=== PATIENT | female | born 1990 | race Caucasian/White ===

== ENCOUNTER 2020-05-26 18:52 | Emergency (ER) | payer OTHER, SELFPAY ==
[2020-05-26 18:55] VITALS: BP 142/70; PULSE 99; RESP 16; TEMP 37.6; O2SAT 98; BMI 23.8
[2020-05-26 19:10] LABS: Glucose Urine UA NEG (NEG); Leukocyte Esterase Urine NEG (NEG); Nitrite Urine NEG (NEG); Specific Gravity - Urine 1.025 (1.005-1.025); Urine Blood 2+ (NEG); Urine Ketones NEG (NEG); Urine Protein NEG (NEG-TRACE)
[2020-05-26 19:14] LABS: Appearance Urine CLEAR; Color Urine YELLOW
[2020-05-26 19:15] LABS: UPreg QC Valid YES; Urine Pregnancy NEGATIVE (NEGATIVE)
[2020-05-26 19:24] LABS: WBC Urine 0-2 /HPF (0-4)
[2020-05-26 19:25] LABS: Bacteria Urine TRACE /LPF; Squamous Epithelial Cell Urine TRACE /LPF
--- NOTE | 2020-05-26 19:36 | ED_ITS ---
HPI - Abdominal Pain General Chief Complaint: Abdominal Pain Stated Complaint: ABD PAIN Time Seen by Provider: 05/26/20 19:36 Source: patient Mode of arrival: ambulatory Limitations: no limitations History of Present Illness MD elicited complaint: abdominal pain Onset (ago): day(s) (yesterday) Pain Consistency: constant Location: RLQ Severity: moderate Quality: cramping and aching Radiation: RLQ Migration to: no migration Exacerbating factors: movement Relieving factors: nothing Associated symptoms: nausea, vomiting and dysuria Treatments prior to arrival: other (tylenol) Related Data Previous Rx's Medication Instructions Recorded magnesium citrate 150 ml PO DAILY PRN #296 ml 05/26/20 nitrofurantoin monohyd/m-cryst 100 mg PO Q12H 5 Days #10 cap 05/26/20 [Macrobid] ondansetron 4 mg PO Q8H PRN #20 tab 05/26/20 Allergies Allergy/AdvReac Type Severity Reaction Status Date / Time prednisone [PREDNISONE] Allergy Intermediate HIVES Unverified 03/18/20 17:31 codeine [CODEINE] Allergy Unknown VOMITTING Unverified 03/18/20 17:31 Review of Systems Review of Systems Constitutional : No Weight loss, No Fever, No Chills ENT/Mouth : No sore throat, No Rhinorrhea Eyes: No Swelling, No Redness Cardiovascular : No Chest Pain, No SOB, NoEdema Respiratory : No Cough, No Sputum, No Wheezing Gastrointestinal : Positive Nausea, Positive Vomiting, positive Diarrhea, positive abdominal Pain, No Hematochezia, No Melena Genitourinary : No Dysuria, No Urinary Frequency, No Hematuria, No Urgency Musculoskeletal : No joint pain, No Myalgias, No Joint Swelling Skin : No Skin Lesions, No rash Neuro : No Weakness, No Numbness, No Dizziness, No Headache Psych : No Anxiety/Panic, No Depression Heme/Lymph: No Bruising, No Lymphadenopathy Endocrine : No Polyuria, No Polydipsia All other systems reviewed and are negative. Physical Exam Vital Signs: Vital Signs: Last Vital Signs Temp 100.1 F 05/26/20 20:43 Pulse 88 05/26/20 20:43 Resp 17 05/26/20 20:43 BP 109/59 L 05/26/20 20:43 Pulse Ox 97 05/26/20 20:43 Body Mass Index 23.8 Appearance: Alert. Oriented X3. No acute distress. Eyes: Pupils equal, round and reactive to light. ENT: Pharynx normal. Neck: Normal inspection. Neck supple. CVS: Normal heart rate and rhythm. Pulses normal. Respiratory: No respiratory distress. Breath sounds normal. Abdomen: Soft and moderate RLQ tenderness, no rebound or guarding. Skin: Skin warm and dry. Normal skin color. Normal skin turgor. Extremities: No lower extremity edema. No calf ttp Neuro: Oriented X 3. No motor deficit. No sensory deficit. Course Course Course Narrative: no acute findings will treat as cystitis and constipation MDM - Abdominal Pain MDM Narrative Medical decision making narrative: 29 yo female healthy here with n/v and RLQ pain will obtain labs, given IVF and toradol for pain, CT scan for appendicitis Lab Data Result diagrams: 05/26/20 20:09 05/26/20 20:09 Labs: Lab Results 05/26/20 05/26/20 05/26/20 Range/Units 19:02 20:09 20:09 WBC 5.6 (4.8-10.8) X10*3/uL RBC 4.77 (4.20-5.50) X10*6/uL Hgb 14.2 (12.0-16.0) g/dl Hct 42.5 (37-47) % MCV 89.1 (80-98) fL MCH 29.8 (27.0-33.0) pg MCHC 33.4 (31.0-35.0) g/dl RDW 12.2 (11.0-16.0) % Plt Count 224 (160-400) X10*3/uL MPV 9.3 L (9.4-12.3) fL Immature Gran % (Auto) 0.4 (0.0-0.4) % Neut % (Auto) 84.8 H (45-73) % Lymph % (Auto) 5.7 L (20-40) % [place] % (Auto) 7.9 (2-11) % Eos % (Auto) 0.5 (0-4) % Baso % (Auto) 0.7 (0-2) % Lymph # (Auto) 0.3 L (1.2-4.9) X10*3/uL [place] # (Auto) 0.4 (0.1-1.2) X10*3/uL Eos # (Auto) 0.0 (0.0-0.4) X10*3/uL Baso # (Auto) 0.0 (0.0-0.2) X10*3/uL Abs Immat Gran (auto) 0.02 (0.00-0.03) X10*3/uL Absolute Neuts (auto) 4.7 (2.0-8.3) X10*3/uL Absolute Nucleated RBC 0.000 (0.0-0.012) X10*3/uL Nucleated RBC % (auto) 0.0 (0.0-0.2) /100WBC Smear Tech's Comments VERIFIED Hold Blue Top SEE NOTE Sodium Potassium Chloride Carbon Dioxide Anion Gap BUN Creatinine Estim Creat Clear Calc Estimated GFR Random Glucose Lactic Acid (0.5-2.0) mmol/L Calcium Magnesium (1.6-2.6) mg/dL Total Bilirubin (0.0-1.0) mg/dL Direct Bilirubin (0.0-0.5) mg/dL AST (5-31) U/L ALT (0-31) U/L Alkaline Phosphatase (39-117) U/L Total Protein (6.5-8.0) g/dL Albumin (3.5-5.0) g/dL Lipase (8-78) U/L Urine Color YELLOW Urine Appearance CLEAR Urine pH 6.0 (5.0-8.0) Ur Specific [place] 1.025 (1.005-1.025) Urine Protein NEG (NEG-TRACE) MG/DL Urine Glucose (UA) NEG (NEG) MG/DL Urine Ketones NEG (NEG) MG/DL Urine Blood 2+ H (NEG) Urine Nitrite NEG (NEG) Ur Leukocyte Esterase NEG (NEG) Urine RBC 1-4 (0) /HPF Urine WBC 0-2 (0-4) /HPF Ur Squamous Epith Cells TRACE /LPF Urine Bacteria TRACE /LPF Urine Test NEGATIVE (NEGATIVE) 05/26/20 05/26/20 05/26/20 Range/Units 20:09 20:09 20:09 WBC (4.8-10.8) X10*3/uL RBC (4.20-5.50) X10*6/uL Hgb (12.0-16.0) g/dl Hct (37-47) % MCV (80-98) fL MCH (27.0-33.0) pg MCHC (31.0-35.0) g/dl RDW (11.0-16.0) % Plt Count (160-400) X10*3/uL MPV (9.4-12.3) fL Immature Gran % (Auto) (0.0-0.4) % Neut % (Auto) (45-73) % Lymph % (Auto) (20-40) % [place] % (Auto) (2-11) % Eos % (Auto) (0-4) % Baso % (Auto) (0-2) % Lymph # (Auto) (1.2-4.9) X10*3/uL [place] # (Auto) (0.1-1.2) X10*3/uL Eos # (Auto) (0.0-0.4) X10*3/uL Baso # (Auto) (0.0-0.2) X10*3/uL Abs Immat Gran (auto) (0.00-0.03) X10*3/uL Absolute Neuts (auto) (2.0-8.3) X10*3/uL Absolute Nucleated RBC (0.0-0.012) X10*3/uL Nucleated RBC % (auto) (0.0-0.2) /100WBC Smear Tech's Comments Hold Blue Top Sodium Cancelled 137 Potassium Cancelled 3.8 Chloride Cancelled 102 Carbon Dioxide Cancelled 25 Anion Gap Cancelled 14 BUN Cancelled 10 Creatinine Cancelled 0.68 Estim Creat Clear Calc Cancelled 110.8 Estimated GFR Cancelled > 60 Random Glucose Cancelled 82 Lactic Acid 1.0 (0.5-2.0) mmol/L Calcium Cancelled 8.7 Magnesium 1.8 (1.6-2.6) mg/dL Total Bilirubin 0.6 (0.0-1.0) mg/dL Direct Bilirubin 0.2 (0.0-0.5) mg/dL AST 17 (5-31) U/L ALT 12 (0-31) U/L Alkaline Phosphatase 59 (39-117) U/L Total Protein 7.9 (6.5-8.0) g/dL Albumin 4.5 (3.5-5.0) g/dL Lipase 13 (8-78) U/L Urine Color Urine Appearance Urine pH (5.0-8.0) Ur Specific [place] (1.005-1.025) Urine Protein (NEG-TRACE) MG/DL Urine Glucose (UA) (NEG) MG/DL Urine Ketones (NEG) MG/DL Urine Blood (NEG) Urine Nitrite (NEG) Ur Leukocyte Esterase (NEG) Urine RBC (0) /HPF Urine WBC (0-4) /HPF Ur Squamous Epith Cells /LPF Urine Bacteria /LPF Urine Test (NEGATIVE) Discharge Plan Discharge Clinical Impression: Cystitis Constipation Qualifiers: Constipation type: unspecified constipation type Qualified Code(s): K59.00 - Constipation, unspecified Patient Disposition: Home, Self-Care Instructions: Constipation (ED), Urinary Tract Infection in Women (ED) Additional Instructions: return to ED for any worsening symptoms or concerns Prescriptions: New ondansetron 4 mg tablet,disintegrating 4 mg PO Q8H PRN (Reason: nausea and vomiting) Qty: 20 RF: 0 nitrofurantoin monohyd/m-cryst [Macrobid] 100 mg capsule 100 mg PO Q12H 5 Days Qty: 10 RF: 0 magnesium citrate Solution 150 ml PO DAILY PRN (Reason: constipation) Qty: 296 RF: 0 Referrals: Wesly Melendez MD [Primary Care Provider] - 5 days (if not better) [facility] Past Medical History Attestation statement: The following information was validated with the patient. Medical History No known health problems Social History Social History (Updated 05/26/20 @ 19:50 by Pat Velarde DO) Smoking Status: Never smoker Use of substances other than those prescribed or required for medical reasons: Yes Substance Use Type: Marijuana Advance Directives: No Advance Directives Information Provided: No
--- NOTE | 2020-05-26 19:40 | CT_ITS ---
EXAMINATION: CT ABDOMEN AND PELVIS WITH CONTRAST CLINICAL INFORMATION: 21-year-old female with right lower quadrant pain. COMPARISON: None TECHNIQUE: Multidetector volumetric images were obtained from the superior aspect of the liver through the pubic symphysis following administration 85 mL of Omnipaque 350 intravenous contrast. Sagittal and coronal reformatted images were obtained on the technologist's workstation. Oral contrast: No This CT examination was performed using dose optimization techniques as appropriate, variously including the following: *Automated exposure control *Adjustment of mA and/or kV according to patient size (this includes techniques or standardized protocols for targeted exams where dose is matched to indication/reason for exam; i.e. extremities or head) *Use of iterative reconstruction technique DLP: 456 mGy-cm FINDINGS: Visualized lung bases are well aerated. The liver demonstrates normal size, contour and attenuation. A few punctate calcifications are noted within the liver. The gallbladder is normal in appearance. The pancreas, spleen and adrenal glands are unremarkable. A few punctate calcifications are noted within the spleen. Symmetrically enhancing kidneys. No hydronephrosis bilaterally. Normal caliber loops of small and large bowel. Normal appendix. No gross mesenteric or retroperitoneal lymphadenopathy. The bladder is well-distended and normal in appearance. IUD appears appropriately positioned within the uterus. 1.4 cm left adnexal cyst. No gross free pelvic fluid. No inguinal lymphadenopathy. No acute osseous abnormality. CT/CT abdomen pelvis w con IMPRESSION: -No CT evidence for acute abnormality within the abdomen or pelvis. -Evidence of prior granulomatous disease.
[2020-05-26] MEDS: 0.9 % Sodium Chloride 1,000 ML 999 ML IVCONT (20:13)
[2020-05-26] MEDS: Ketorolac Tromethamine 30 MG/ML VIAL IVPUSH (20:17)
[2020-05-26] MEDS: ondansetron HCL 4 MG/2 ML VIAL IVPUSH (20:17)
[2020-05-26 20:22] LABS: Basophils Percent Auto 0.7 % (0-2); Eosinophils Percent Auto 0.5 % (0-4); Hematocrit 42.5 % (37-47); Hemoglobin 14.2 g/dl (12.0-16.0); Imm Gran Abs Auto 0.02 X10*3/uL (0.00-0.03); Imm Gran Pct Auto 0.4 % (0.0-0.4); Lymphocytes Absolute Auto 0.3 X10*3/uL (1.2-4.9); Lymphocytes Percent Auto 5.7 % (20-40); MANUAL DIFF FLAG SCAN; Mean Corpuscular HGB Conc 33.4 g/dl (31.0-35.0); Mean Corpuscular Hemoglobin 29.8 pg (27.0-33.0); Mean Corpuscular Volume 89.1 fL (80-98); Mean Platelet Volume 9.3 fL (9.4-12.3); Monocytes Absolute Auto 0.4 X10*3/uL (0.1-1.2); Monocytes Percent Auto 7.9 % (2-11); Neutrophils Absolute Auto 4.7 X10*3/uL (2.0-8.3); Neutrophils Percent Auto 84.8 % (45-73); Platelet Count 224 X10*3/uL (160-400); Red Blood Count 4.77 X10*6/uL (4.20-5.50); Red Cell Distribution Width 12.2 % (11.0-16.0); SCAN SMEAR FLAG 1; White Blood Count 5.6 X10*3/uL (4.8-10.8)
[2020-05-26 20:41] LABS: SLIDE REVIEW VERIFIED
[2020-05-26 20:43] VITALS: BP 109/59; PULSE 88; RESP 17; TEMP 37.8; O2SAT 97
[2020-05-26 20:52] LABS: Alanine Aminotransferase 12 U/L (0-31); Albumin Level 4.5 g/dL (3.5-5.0); Alkaline Phosphatase 59 U/L (39-117); Anion Gap 14 (12-20); Aspartate Amino Transferase 17 U/L (5-31); Bilirubin Direct 0.2 mg/dL (0.0-0.5); Bilirubin Total 0.6 mg/dL (0.0-1.0); Blood Urea Nitrogen 10 mg/dL (9-16); Calcium 8.7 mg/dL (8.4-10.2); Carbon Dioxide 25 mmol/L (22-29); Chloride 102 mmol/L (96-108); Creatinine Clr Calc Pharmacy 110.8; Estimated Glomerular Filt Rate > 60; Glucose Random 82 mg/dL (60-115); Lipase 13 U/L (8-78); Magnesium 1.8 mg/dL (1.6-2.6); Potassium 3.8 mmol/l (3.3-5.1); Sodium 137 mmol/L (135-145); Total Protein 7.9 g/dL (6.5-8.0)
[2020-05-26] MEDS: iohexoL 350 MG/ML 100 ML INFUS..BTL IV (21:09)
[2020-05-26] MEDS: Nitrofurantoin Monohyd/M-Cryst 100 MG CAPSULE PO (22:39)
== END 2020-05-26 23:00 | disposition home or self-care (01) ==
PROVIDERS: Emergency Provider Emergency Medicine; PCP Internal Medicine
DX: N30.90 Cystitis, unspecified without hematuria (principal); K59.00 Constipation, unspecified; R10.31 Right lower quadrant pain; F12.90 Cannabis use, unspecified, uncomplicated; Z79.899 Other long term (current) drug therapy
CPT/HCPCS: 36415; 74177; 80048; 80076; 81001; 81025; 83605; 83690; 83735; 85025; 87040; 96365; 96374; 96375; 99284; J1885; J2405; Q9967

== ENCOUNTER 2021-09-28 11:15 | Outpatient (REF) | payer OTHER, SELFPAY ==
[2021-09-28 12:11] LABS: Hematocrit 39.9 % (37.0-47.0); Hemoglobin 13.2 g/dl (12.0-16.0); Mean Corpuscular HGB Conc 33.1 g/dl (31.0-35.0); Mean Corpuscular Hemoglobin 30.4 pg (27.0-33.0); Mean Corpuscular Volume 91.9 fL (80.0-98.0); Mean Platelet Volume 9.6 fL (9.4-12.3); Platelet Count 275 X10*3/uL (160-400); Red Blood Count 4.34 X10*6/uL (4.20-5.50); Red Cell Distribution Width 12.3 % (11.0-16.0); White Blood Count 7.4 X10*3/uL (4.8-10.8)
[2021-09-28 13:06] LABS: Alanine Aminotransferase 14 U/L (0-31); Albumin Level 4.3 g/dL (3.5-5.0); Alkaline Phosphatase 50 U/L (39-117); Anion Gap 10 (12-20); Aspartate Amino Transferase 15 U/L (5-31); Bilirubin Total 0.7 mg/dL (0.0-1.0); Blood Urea Nitrogen 15 mg/dL (9-16); Calcium 9.1 mg/dL (8.4-10.2); Carbon Dioxide 26 mmol/L (22-29); Chloride 103 mmol/L (96-108); Estimated Glomerular Filt Rate > 60; Glucose Fasting 85 mg/dL (60-99); Potassium 4.2 mmol/L (3.3-5.1); Sodium 135 mmol/L (135-145); Total Protein 7.7 g/dL (6.5-8.0)
[2021-09-28 13:13] LABS: Free T4 (Free Thyroxine) 1.01 ng/dL (0.71-1.85); Thyroid Stimulating Hormone 0.97 uIU/mL (0.32-4.0)
[2021-09-28 13:21] LABS: Folate 14.7 ng/mL (> or = 4.0); Vitamin B12 346 pg/mL (200-900)
== END 2021-09-28 11:16 | disposition home or self-care (01) ==
LOC: HO.LAB 11:15
PROVIDERS: Nurse Practitioner Family; PCP Internal Medicine; Visit Provider Internal Medicine
DX: R51.9 Headache, unspecified (principal); F41.9 Anxiety disorder, unspecified; R53.83 Other fatigue
CPT/HCPCS: 36415; 80053; 82306; 82607; 82746; 84439; 84443; 85027

== ENCOUNTER 2021-10-10 07:34 | Outpatient (REF) | payer OTHER, SELFPAY ==
--- NOTE | ~2021-10-10 | CT_ITS ---
CT HEAD WITHOUT CONTRAST CLINICAL INFORMATION: Amnesia and headaches. COMPARISON: Head CT September 11, 2010. TECHNIQUE: Contiguous axial imaging was performed from the skull base to vertex without intravenous administration of contrast. This CT examination was performed using dose optimization techniques as appropriate, variously including the following: *Automated exposure control *Adjustment of mA and/or kV according to patient size (this includes techniques or standardized protocols for targeted exams where dose is matched to indication/reason for exam; i.e. extremities or head) *Use of iterative reconstruction technique FINDINGS: There is no intracranial hemorrhage, hydrocephalus, extra-axial surface collection, midline shift, or other herniation pattern. Abad to white matter differentiation is diffusely maintained without evidence of an evolved acute territorial infarct. The basilar cisterns are preserved. No significant soft tissue abnormality. No acute osseous abnormality. The paranasal sinuses and the mastoid air cells are well aerated. CT/CT head/brain wo con IMPRESSION: No acute intracranial abnormality.
== END 2021-10-10 07:35 | disposition home or self-care (01) ==
LOC: HO.CT 07:34
PROVIDERS: PCP Internal Medicine; Visit Provider Nurse Practitioner Family
DX: R51.9 Headache, unspecified (principal); R41.3 Other amnesia
CPT/HCPCS: 70450

== ENCOUNTER 2022-10-31 17:29 | Emergency (ER) | payer OTHER, SELFPAY ==
--- NOTE | ~2022-10-31 | US_ITS ---
EXAMINATION: US OBSTETRICAL ULTRASOUND CLINICAL INFORMATION: Evaluation of ectopic , per history patient was given methotrexate yesterday. COMPARISON: CT abdomen/pelvis 05/26/2020. LMP: 09/12/2022. Gestational age by maternal dates is 7 weeks and 0 days. Estimated date of delivery by maternal dates is 06/19/2023. TECHNIQUE: Transabdominal and transvaginal images obtained with the patient's consent. FINDINGS: The uterus is anteverted and measures 7.2 x 3 x 3.6 cm. No intrauterine gestational sac is noted. The endometrium measures 0.4 cm in thickness. No discrete focal endometrial abnormality. Normal morphology of the both ovaries. The right ovary measures 2 x 0.9 x 0.9 cm and the left ovary measures 2.5 x 1.9 x 1.6 cm. There is a 1 x 0.7 x 0.8 cm peripherally hyperemic cyst in the left ovary, favored to represent a corpus luteal cyst. Separate from the left ovary in the left adnexa, there is a 2.4 x 1.3 x 1.6 cm mass with a rim of peripheral hyperemia. Small amount of free fluid. US/US OB pelvic and transvaginal IMPRESSION: No evidence of intrauterine gestation. There is a 2.4 cm left adnexal mass, adjacent but separate from the left ovary, with a peripheral hypervascular rim, suspicious for an ectopic in the appropriate clinical context. Correlation with quantitative hCG and OB consultation is recommended.
[2022-10-31 18:33] VITALS: BP 131/72; PULSE 76; RESP 18; TEMP 36.2; O2SAT 100; BMI 27.0
--- NOTE | 2022-10-31 18:33 | ED.FEMALEGU ---
HPI - Female Genitourinary General Chief complaint: Urogenital-Female <ALIX Moreno - Last Filed: 10/31/22 18:39> Stated complaint: Abnormal labs/?Ectopic preg <ALIX Moreno - Last Filed: 10/31/22 18:39> Time Seen by Provider: 10/31/22 19:42 <ALIX Moreno - Last Filed: 10/31/22 18:39> Source: patient <Thu Whitley MD - Last Filed: 10/31/22 22:38> Mode of arrival: ambulatory <Thu Whitley MD - Last Filed: 10/31/22 22:38> Limitations: no limitations <Thu Whitley MD - Last Filed: 10/31/22 22:38> History of Present Illness HPI Narrative: Patient comes to the emergency room after [facility]. [facility], [facility] tablet by mouth and for several call tablets at 18:50. Patient states that around 4 in the morning today she started having mild vaginal bleeding and cramping. Patient states that yesterday they did an ultrasound and intrauterine and was not visualized. Today, she got a phone call because her hCG is 4800 there was a concern for an ectopic . Patient was advised to come to emergency room. Patient states that this time she has no significant pain, only occasional cramping and mild vaginal bleeding. This is her 1st <Thu Whitley MD - Last Filed: 10/31/22 22:38> Related Data Home medications: Home Medications Medication Instructions Recorded Confirmed norethindrone (contraceptive) 0.35 0.35 mg PO DAILY 05/03/21 05/03/21 mg tablet Previous Rx's Medication Instructions Recorded meclizine 25 mg tablet 25 mg PO DAILY PRN motion sickness 05/03/21 #10 tabs escitalopram oxalate 10 mg tablet 10 mg PO DAILY #30 tabs 06/06/21 (Lexapro) cholecalciferol (vitamin D3) 25 25 mcg PO DAILY #90 tabs 09/28/21 mcg (1,000 unit) tablet azithromycin 250 mg tablet See Rx Instructions PO .COMPLEX #6 03/15/22 (Zithromax) tabs trazodone 50 mg tablet 50 mg PO BEDTIME PRN sleep #30 tabs 07/05/22 <ALIX Moreno - Last Filed: 10/31/22 18:39> Allergies/Adverse reactions: Allergies Allergy/AdvReac Type Severity Reaction Status Date / Time prednisone [PREDNISONE] Allergy Intermediate HIVES Verified 10/31/22 18:33 codeine [CODEINE] Allergy Unknown VOMITTING Verified 10/31/22 18:33 <ALIX Moreno - Last Filed: 10/31/22 18:39> Review of Systems Review of Systems: Constitutional : No Weight loss, No Fever, No Chills, No Night Sweats, No Fatigue, No Malaise ENT/Mouth : No Hearing loss, No Ear Pain, No Nasal Congestion, No Sinus Pain, No Hoarseness, No sore throat, No Rhinorrhea, No Swallowing Difficulty Eyes: No Eye Pain, No Swelling, No Redness, No Foreign Body, No Discharge, No Vision Changes Cardiovascular : No Chest Pain, No SOB, No Dyspnea on Exertion, No Orthopnea, No Edema, No Palpitations Respiratory : No Cough, No Sputum, No Wheezing, No Smoke Exposure, No Dyspnea Gastrointestinal : No Nausea, No Vomiting, No Diarrhea, No Constipation, No abdominal Pain, No Hematochezia, No Melena Genitourinary : Complaining of mild cramping and mild vaginal bleeding, No Dysuria, No Urinary Frequency, No Hematuria, No Urinary Incontinence, No Urgency, No Flank Pain, No Urinary Flow Changes, No Hesitancy Musculoskeletal : No joint pain, No Myalgias, No Joint Swelling Skin : No Skin Lesions, No rash Neuro : No Weakness, No Numbness, No Paresthesias, No Loss of Consciousness, No Dizziness, No Headache Psych : No Anxiety/Panic, No Depression, No SI/HI/AH/VH, No Social Issues, Heme/Lymph: No Bruising, No Bleeding,No Lymphadenopathy Endocrine : No Polyuria, No Polydipsia, No Temperature Intolerance <Thu Whitley MD - Last Filed: 10/31/22 22:38> [facility] Past Medical History Medical History: Medical History Generalized anxiety disorder No known health problems <ALIX Moreno - Last Filed: 10/31/22 18:39> Surgical History: Surgical History No pertinent past surgical history <ALIX Moreno - Last Filed: 10/31/22 18:39> Family History Family History: Family History Mother Arthritis Father No problems noted. 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 Cognitive needs: No Hearing needs: No Vision needs: No <ALIX Moreno - Last Filed: 10/31/22 18:39> Physical Exam Vital Signs: Vital Signs: Last Vital Signs Temp 98.3 F 10/31/22 22:19 Pulse 80 10/31/22 22:19 Resp 16 10/31/22 22:19 BP 122/64 10/31/22 22:19 Pulse Ox 97 10/31/22 22:19 O2 Del Method Room Air 10/31/22 22:19 BMI result Body Mass Index 27.7 <ALIX Moreno - Last Filed: 10/31/22 18:39> Vital Signs: Last Vital Signs Temp 98.3 F 10/31/22 22:19 Pulse 80 10/31/22 22:19 Resp 16 10/31/22 22:19 BP 122/64 10/31/22 22:19 Pulse Ox 97 10/31/22 22:19 O2 Del Method Room Air 10/31/22 22:19 BMI result Body Mass Index 27.7 <Thu Whitley MD - Last Filed: 10/31/22 22:38> Const: Other: Appearance: Alert. Oriented X3. No acute distress. Eyes: Pupils equal, round and reactive to light. ENT: Pharynx normal. Neck: Normal inspection. Neck supple. No lymph nodes noted. No crepitus CVS: Normal heart rate and rhythm. Pulses normal. Normal S1 and S2 Respiratory: No respiratory distress. Breath sounds normal. No Wheezing. No rales Abdomen: Soft and nontender. No rigidity. No distention. Skin: Skin warm and dry. Normal skin color. Normal skin turgor. Extremities: No lower extremity edema. No Lacerations. No Rash Neuro: Oriented X 3. No motor deficit. No sensory deficit. Moving all extremities. No slurred speech. CN 2 through 12 grossly intact Psych: calm, cooperative, normal affect <Thu Whitley MD - Last Filed: 10/31/22 22:38> Course Course Course Narrative: RME - 32 y/o female presents to the ER for evaluation of a treated medical yesterday at [facility] with concern for elevated HCG of 4800 that resulted today after a pelvic U/S yesterday showing no IUP. She was treated with PO and vaginal pills last night by [facility], labs that were done yesterday resulted today. She has been vaginally bleeding all day but no significant pain, mild cramping. Plan: repeat labs and U/S to assess for possible ectopic , will need to d/w Dr. Sams <ALIX Moreno - Last Filed: 10/31/22 18:39> Medical Decision Making Medical Decision Making [facility] Narrative: -I discussed the ultrasound and the labs with Dr. Sams, patient is a candidate for methotrexate. -Dr. Sams evaluated the patient at bedside. Methotrexate has been ordered. -patient instructed that she needs lab work/hCG on November 03 and November 06. Patient will be seen on Dr. Sams's office on the 8th floor she gets her lab work done -patient's blood type O positive, RhoGAM not indicated <Thu Whitley MD - Last Filed: 10/31/22 22:38> Consult Healthcare Provider Management of the patient was discussed with: Biophysics Teacher <Thu Whitley MD - Last Filed: 10/31/22 22:38> Lab Data [facility] Lab Attestation statement: I reviewed the patient's lab results. <Thu Whitley MD - Last Filed: 10/31/22 22:38> Result Diagrams: 10/31/22 18:35 10/31/22 18:35 <ALIX Moreno - Last Filed: 10/31/22 18:39> Labs: Lab Results 10/31/22 10/31/22 10/31/22 Range/Units 18:35 18:35 18:35 WBC 9.8 (4.8-10.8) X10*3/uL RBC 4.57 (4.20-5.50) X10*6/uL Hgb 14.1 (12.0-16.0) g/dl Hct 43.2 (37.0-47.0) % MCV 94.5 (80.0-98.0) fL MCH 30.9 (27.0-33.0) pg MCHC 32.6 (31.0-35.0) g/dl RDW 12.2 (11.0-16.0) % Plt Count 298 (160-400) X10*3/uL MPV 9.5 (9.4-12.3) fL Immature Gran % (Auto) 0.3 (0.0-0.4) % Neut % (Auto) 63.9 (45-73) % Lymph % (Auto) 25.5 (20-40) % [place] % (Auto) 8.3 (2-11) % Eos % (Auto) 1.1 (0-4) % Baso % (Auto) 0.9 (0-2) % Lymph # (Auto) 2.5 (1.2-4.9) X10*3/uL [place] # (Auto) 0.8 (0.1-1.2) X10*3/uL Eos # (Auto) 0.1 (0.0-0.4) X10*3/uL Baso # (Auto) 0.1 (0.0-0.2) X10*3/uL Abs Immat Gran (auto) 0.03 (0.00-0.03) X10*3/uL Absolute Neuts (auto) 6.3 (2.0-8.3) x10*3/uL Absolute Nucleated RBC 0.000 (0.0-0.012) X10*3/uL Nucleated RBC % (auto) 0.0 (0.0-0.2) /100WBC Sodium 138 (135-145) mmol/L Potassium 3.6 (3.3-5.1) mmol/L Chloride 106 (96-108) mmol/L Carbon Dioxide 23 (22-29) mmol/L Anion Gap 13 (12-20) BUN 9 (9-16) mg/dL Creatinine 0.74 (0.5-1.4) mg/dL Estim Creat Clear Calc 110.5 Estimated GFR > 60 Random Glucose 87 (60-115) mg/dL Calcium 9.1 (8.4-10.2) mg/dL Magnesium 1.8 (1.6-2.6) mg/dL Total Bilirubin 0.6 (0.0-1.0) mg/dL Direct Bilirubin 0.2 (0.0-0.5) mg/dL AST 15 (5-31) U/L ALT 11 (0-31) U/L Alkaline Phosphatase 51 (39-117) U/L Total Protein 7.8 (6.5-8.0) g/dL Albumin 4.4 (3.5-5.0) g/dL Beta HCG, Quant 4817 mIU/mL Urine Color Urine Appearance Urine pH (5.0-9.0) Ur Specific [place] (1.005-1.025) Urine Protein (Neg-Trace) mg/dL Urine Glucose (UA) (Negative) mg/dL Urine Ketones (Negative) mg/dL Urine Blood (Negative) Urine Nitrite (Negative) Ur Leukocyte Esterase (Negative) Urine RBC (0-2) /HPF Urine WBC (0-5) /HPF Ur Squamous Epith Cells (0-2) /HPF Urine Bacteria (None Seen) Hyaline Casts (0-2) /LPF Blood Type O Positive 10/31/22 Range/Units 18:35 WBC (4.8-10.8) X10*3/uL RBC (4.20-5.50) X10*6/uL Hgb (12.0-16.0) g/dl Hct (37.0-47.0) % MCV (80.0-98.0) fL MCH (27.0-33.0) pg MCHC (31.0-35.0) g/dl RDW (11.0-16.0) % Plt Count (160-400) X10*3/uL MPV (9.4-12.3) fL Immature Gran % (Auto) (0.0-0.4) % Neut % (Auto) (45-73) % Lymph % (Auto) (20-40) % [place] % (Auto) (2-11) % Eos % (Auto) (0-4) % Baso % (Auto) (0-2) % Lymph # (Auto) (1.2-4.9) X10*3/uL [place] # (Auto) (0.1-1.2) X10*3/uL Eos # (Auto) (0.0-0.4) X10*3/uL Baso # (Auto) (0.0-0.2) X10*3/uL Abs Immat Gran (auto) (0.00-0.03) X10*3/uL Absolute Neuts (auto) (2.0-8.3) x10*3/uL Absolute Nucleated RBC (0.0-0.012) X10*3/uL Nucleated RBC % (auto) (0.0-0.2) /100WBC Sodium (135-145) mmol/L Potassium (3.3-5.1) mmol/L Chloride (96-108) mmol/L Carbon Dioxide (22-29) mmol/L Anion Gap (12-20) BUN (9-16) mg/dL Creatinine (0.5-1.4) mg/dL Estim Creat Clear Calc Estimated GFR Random Glucose (60-115) mg/dL Calcium (8.4-10.2) mg/dL Magnesium (1.6-2.6) mg/dL Total Bilirubin (0.0-1.0) mg/dL Direct Bilirubin (0.0-0.5) mg/dL AST (5-31) U/L ALT (0-31) U/L Alkaline Phosphatase (39-117) U/L Total Protein (6.5-8.0) g/dL Albumin (3.5-5.0) g/dL Beta HCG, Quant mIU/mL Urine Color Yellow Urine Appearance Clear Urine pH 6.0 (5.0-9.0) Ur Specific [place] 1.010 (1.005-1.025) Urine Protein Trace (Neg-Trace) mg/dL Urine Glucose (UA) Negative (Negative) mg/dL Urine Ketones 15 (Negative) mg/dL Urine Blood Large (3+) H (Negative) Urine Nitrite Negative (Negative) Ur Leukocyte Esterase Small (1+) H (Negative) Urine RBC >20 H (0-2) /HPF Urine WBC 11-20 H (0-5) /HPF Ur Squamous Epith Cells 3-5 (0-2) /HPF Urine Bacteria None Seen (None Seen) Hyaline Casts 0-2 (0-2) /LPF Blood Type <ALIX Moreno - Last Filed: 10/31/22 18:39> Lab Results 10/31/22 10/31/22 10/31/22 Range/Units 18:35 18:35 18:35 WBC 9.8 (4.8-10.8) X10*3/uL RBC 4.57 (4.20-5.50) X10*6/uL Hgb 14.1 (12.0-16.0) g/dl Hct 43.2 (37.0-47.0) % MCV 94.5 (80.0-98.0) fL MCH 30.9 (27.0-33.0) pg MCHC 32.6 (31.0-35.0) g/dl RDW 12.2 (11.0-16.0) % Plt Count 298 (160-400) X10*3/uL MPV 9.5 (9.4-12.3) fL Immature Gran % (Auto) 0.3 (0.0-0.4) % Neut % (Auto) 63.9 (45-73) % Lymph % (Auto) 25.5 (20-40) % [place] % (Auto) 8.3 (2-11) % Eos % (Auto) 1.1 (0-4) % Baso % (Auto) 0.9 (0-2) % Lymph # (Auto) 2.5 (1.2-4.9) X10*3/uL [place] # (Auto) 0.8 (0.1-1.2) X10*3/uL Eos # (Auto) 0.1 (0.0-0.4) X10*3/uL Baso # (Auto) 0.1 (0.0-0.2) X10*3/uL Abs Immat Gran (auto) 0.03 (0.00-0.03) X10*3/uL Absolute Neuts (auto) 6.3 (2.0-8.3) x10*3/uL Absolute Nucleated RBC 0.000 (0.0-0.012) X10*3/uL Nucleated RBC % (auto) 0.0 (0.0-0.2) /100WBC Sodium 138 (135-145) mmol/L Potassium 3.6 (3.3-5.1) mmol/L Chloride 106 (96-108) mmol/L Carbon Dioxide 23 (22-29) mmol/L Anion Gap 13 (12-20) BUN 9 (9-16) mg/dL Creatinine 0.74 (0.5-1.4) mg/dL Estim Creat Clear Calc 110.5 Estimated GFR > 60 Random Glucose 87 (60-115) mg/dL Calcium 9.1 (8.4-10.2) mg/dL Magnesium 1.8 (1.6-2.6) mg/dL Total Bilirubin 0.6 (0.0-1.0) mg/dL Direct Bilirubin 0.2 (0.0-0.5) mg/dL AST 15 (5-31) U/L ALT 11 (0-31) U/L Alkaline Phosphatase 51 (39-117) U/L Total Protein 7.8 (6.5-8.0) g/dL Albumin 4.4 (3.5-5.0) g/dL Beta HCG, Quant 4817 mIU/mL Urine Color Urine Appearance Urine pH (5.0-9.0) Ur Specific [place] (1.005-1.025) Urine Protein (Neg-Trace) mg/dL Urine Glucose (UA) (Negative) mg/dL Urine Ketones (Negative) mg/dL Urine Blood (Negative) Urine Nitrite (Negative) Ur Leukocyte Esterase (Negative) Urine RBC (0-2) /HPF Urine WBC (0-5) /HPF Ur Squamous Epith Cells (0-2) /HPF Urine Bacteria (None Seen) Hyaline Casts (0-2) /LPF Blood Type O Positive 10/31/22 Range/Units 18:35 WBC (4.8-10.8) X10*3/uL RBC (4.20-5.50) X10*6/uL Hgb (12.0-16.0) g/dl Hct (37.0-47.0) % MCV (80.0-98.0) fL MCH (27.0-33.0) pg MCHC (31.0-35.0) g/dl RDW (11.0-16.0) % Plt Count (160-400) X10*3/uL MPV (9.4-12.3) fL Immature Gran % (Auto) (0.0-0.4) % Neut % (Auto) (45-73) % Lymph % (Auto) (20-40) % [place] % (Auto) (2-11) % Eos % (Auto) (0-4) % Baso % (Auto) (0-2) % Lymph # (Auto) (1.2-4.9) X10*3/uL [place] # (Auto) (0.1-1.2) X10*3/uL Eos # (Auto) (0.0-0.4) X10*3/uL Baso # (Auto) (0.0-0.2) X10*3/uL Abs Immat Gran (auto) (0.00-0.03) X10*3/uL Absolute Neuts (auto) (2.0-8.3) x10*3/uL Absolute Nucleated RBC (0.0-0.012) X10*3/uL Nucleated RBC % (auto) (0.0-0.2) /100WBC Sodium (135-145) mmol/L Potassium (3.3-5.1) mmol/L Chloride (96-108) mmol/L Carbon Dioxide (22-29) mmol/L Anion Gap (12-20) BUN (9-16) mg/dL Creatinine (0.5-1.4) mg/dL Estim Creat Clear Calc Estimated GFR Random Glucose (60-115) mg/dL Calcium (8.4-10.2) mg/dL Magnesium (1.6-2.6) mg/dL Total Bilirubin (0.0-1.0) mg/dL Direct Bilirubin (0.0-0.5) mg/dL AST (5-31) U/L ALT (0-31) U/L Alkaline Phosphatase (39-117) U/L Total Protein (6.5-8.0) g/dL Albumin (3.5-5.0) g/dL Beta HCG, Quant mIU/mL Urine Color Yellow Urine Appearance Clear Urine pH 6.0 (5.0-9.0) Ur Specific [place] 1.010 (1.005-1.025) Urine Protein Trace (Neg-Trace) mg/dL Urine Glucose (UA) Negative (Negative) mg/dL Urine Ketones 15 (Negative) mg/dL Urine Blood Large (3+) H (Negative) Urine Nitrite Negative (Negative) Ur Leukocyte Esterase Small (1+) H (Negative) Urine RBC >20 H (0-2) /HPF Urine WBC 11-20 H (0-5) /HPF Ur Squamous Epith Cells 3-5 (0-2) /HPF Urine Bacteria None Seen (None Seen) Hyaline Casts 0-2 (0-2) /LPF Blood Type <Thu Whitley MD - Last Filed: 10/31/22 22:38> Radiology Impression Discussion of test interpretation with radiology: I have reviewed the radiologist's reading. <Thu Whitley MD - Last Filed: 10/31/22 22:38> Radiologist Impression: FINDINGS: The uterus is anteverted and measures 7.2 x 3 x 3.6 cm. No intrauterine gestational sac is noted. The endometrium measures 0.4 cm in thickness. No discrete focal endometrial abnormality. Normal morphology of the both ovaries. The right ovary measures 2 x 0.9 x 0.9 cm and the left ovary measures 2.5 x 1.9 x 1.6 cm. There is a 1 x 0.7 x 0.8 cm peripherally hyperemic cyst in the left ovary, favored to represent a corpus luteal cyst. Separate from the left ovary in the left adnexa, there is a 2.4 x 1.3 x 1.6 cm mass with a rim of peripheral hyperemia. Small amount of free fluid. US/US OB pelvic and transvaginal IMPRESSION: No evidence of intrauterine gestation. ? There is a 2.4 cm left adnexal mass, adjacent but separate from the left ovary, with a peripheral hypervascular rim, suspicious for an ectopic in the appropriate clinical context. Correlation with quantitative hCG and OB consultation is recommended. <Thu Whitley MD - Last Filed: 10/31/22 22:38> Critical Care Time Critical Care Time Critical Care Time: Yes <Thu Whitley MD - Last Filed: 10/31/22 22:38> Total Critical Care Time: 30 <Thu Whitley MD - Last Filed: 10/31/22 22:38> Attestation: I have personally provided critical care time. Time includes review of lab data, radiology results, discussion with consultants, and monitoring for potential decompensation. Intervention performed as documented. <Thu Whitley MD - Last Filed: 10/31/22 22:38> Discharge Plan Discharge Clinical Impression: Ectopic <ALIX Moreno - Last Filed: 10/31/22 18:39> Patient Disposition: Home, Self-Care <ALXI Moreno - Last Filed: 10/31/22 18:39> Instructions: Ectopic (DC) <ALIX Moreno - Last Filed: 10/31/22 18:39> Additional Instructions: On November 03 unknown November 06 unit to come to the hospital for blood work. You have an appointment with Dr. Sams on November 06. Please follow-up with your primary care physician tomorrow. If you have any worsening or new symptoms, please return to the emergency room or call 911 <ALIX Moreno - Last Filed: 10/31/22 18:39> Prescriptions: No Action escitalopram oxalate [Lexapro] 10 mg tablet 10 mg PO DAILY Qty: 30 1RF cholecalciferol (vitamin D3) 25 mcg (1,000 unit) tablet 25 mcg PO DAILY Qty: 90 0RF azithromycin [Zithromax] 250 mg tablet See Rx Instructions PO .COMPLEX Qty: 6 0RF Rx Instructions: take 500 mg today (day 1), then 250 mg for 4 days (days 2-5) PO trazodone 50 mg tablet 50 mg PO BEDTIME PRN (Reason: sleep) Qty: 30 1RF norethindrone (contraceptive) 0.35 mg tablet 0.35 mg PO DAILY meclizine 25 mg tablet 25 mg PO DAILY PRN (Reason: motion sickness) Qty: 10 0RF <ALIX Moreno - Last Filed: 10/31/22 18:39> Referrals: Jose Eduardo Sams MD [Physician] - 11/06/22 <ALIX Moreno - Last Filed: 10/31/22 18:39>
[2022-10-31 18:41] LABS: MANUAL DIFF FLAG NO
[2022-10-31 18:46] LABS: Appearance Urine Clear; Color Urine Yellow; Glucose Urine UA Negative (Negative); Leukocyte Esterase Urine Small (1+) (Negative); Nitrite Urine Negative (Negative); UMIC TRIGGER UACC YES; Urine Blood Large (3+) (Negative); Urine Ketones 15 mg/dL (Negative); Urine Protein Trace mg/dL (Neg-Trace)
[2022-10-31 18:52] LABS: Basophils Absolute Auto 0.1 X10*3/uL (0.0-0.2); Basophils Percent Auto 0.9 % (0-2); Eosinophils Absolute Auto 0.1 X10*3/uL (0.0-0.4); Eosinophils Percent Auto 1.1 % (0-4); Hematocrit 43.2 % (37.0-47.0); Hemoglobin 14.1 g/dl (12.0-16.0); Imm Gran Abs Auto 0.03 X10*3/uL (0.00-0.03); Imm Gran Pct Auto 0.3 % (0.0-0.4); Lymphocytes Absolute Auto 2.5 X10*3/uL (1.2-4.9); Lymphocytes Percent Auto 25.5 % (20-40); Mean Corpuscular HGB Conc 32.6 g/dl (31.0-35.0); Mean Corpuscular Hemoglobin 30.9 pg (27.0-33.0); Mean Corpuscular Volume 94.5 fL (80.0-98.0); Mean Platelet Volume 9.5 fL (9.4-12.3); Monocytes Absolute Auto 0.8 X10*3/uL (0.1-1.2); Monocytes Percent Auto 8.3 % (2-11); Neutrophils Absolute Auto 6.3 x10*3/uL (2.0-8.3); Neutrophils Percent Auto 63.9 % (45-73); Platelet Count 298 X10*3/uL (160-400); Red Blood Count 4.57 X10*6/uL (4.20-5.50); Red Cell Distribution Width 12.2 % (11.0-16.0); White Blood Count 9.8 X10*3/uL (4.8-10.8)
[2022-10-31 19:03] LABS: Alanine Aminotransferase 11 U/L (0-31); Albumin Level 4.4 g/dL (3.5-5.0); Alkaline Phosphatase 51 U/L (39-117); Anion Gap 13 (12-20); Aspartate Amino Transferase 15 U/L (5-31); Bilirubin Direct 0.2 mg/dL (0.0-0.5); Bilirubin Total 0.6 mg/dL (0.0-1.0); Blood Urea Nitrogen 9 mg/dL (9-16); Calcium 9.1 mg/dL (8.4-10.2); Carbon Dioxide 23 mmol/L (22-29); Chloride 106 mmol/L (96-108); Creatinine Clr Calc Pharmacy 110.5; Estimated Glomerular Filt Rate > 60; Glucose Random 87 mg/dL (60-115); HCG Quantitative 4817 mIU/mL; Magnesium 1.8 mg/dL (1.6-2.6); Potassium 3.6 mmol/L (3.3-5.1); Sodium 138 mmol/L (135-145); Total Protein 7.8 g/dL (6.5-8.0)
[2022-10-31 20:24] LABS: Bacteria Urine None Seen (None Seen); Hyaline Casts Urine 0-2 /LPF (0-2); RBC Urine >20 /HPF (0-2); UACC Culture Trigger YES
--- NOTE | 2022-10-31 21:07 | PM.GYNCN ---
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 [facility], [facility], received medical termination of with 1 tablet of Mifepristone and 4 vaginal tablets of misoprostol at 18:50.? The patient start having mild vaginal bleeding and cramping at 04:00.? According to the patient she had a pelvic ultrasound with no evidence of intrauterine .? Today, she got a phone call because her hCG is 4800 and concern for an ectopic .? The patient does not have any abdominal or pelvic pain, only occasional cramping and mild vaginal bleeding.? In the emergency room hCG is 4817, blood type O positive, CBC, platelets, creatinine, AST/AST all within normal cc:: CC: OB [facility] Past Medical History Medical History Generalized anxiety disorder No known health problems Family History Family History Mother Arthritis Father No problems noted. 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 Cognitive needs: No Hearing needs: No Vision needs: No Meds Allergies Allergy/AdvReac Type Severity Reaction Status Date / Time prednisone [PREDNISONE] Allergy Intermediate HIVES Verified 10/31/22 18:33 codeine [CODEINE] Allergy Unknown VOMITTING Verified 10/31/22 18:33 Home Medications Medication Instructions Recorded Confirmed Last Taken Type norethindrone (contraceptive) 0.35 0.35 mg PO DAILY 05/03/21 05/03/21 Unknown History mg tablet BONE CHAR KILN OPERATOR Physical Exam Vitals Vital signs: Temp Pulse Resp BP Pulse Ox O2 Del Method 97.2 F 76 18 131/72 100 Room Air 10/31/22 18:33 10/31/22 18:33 10/31/22 18:33 10/31/22 18:33 10/31/22 18:33 10/31/22 18:33 BMI result Body Mass Index 27.0 Abdomen Auscultation/Inspection/Palpation: Normal bowel sounds, Soft, Non-distended and No tenderness Female Genitalia (Pelvic) Bladder/Urethra: Normal meatus Vulva: No lesions Vagina: Nontender Cervix: Grossly normal and No cervical motion tenderness Uterus: Normal size and Nontender Adnexa/Parametria: Adnexal Tenderness: None, Adnexal Mass: None, Parametrial Tenderness: None and Parametrial Mass: None BONE CHAR KILN OPERATOR - Results Labs 10/31/22 18:35 10/31/22 18:35 Labs: Short CBC 10/31/22 Range/Units 18:35 WBC 9.8 (4.8-10.8) X10*3/uL Hgb 14.1 (12.0-16.0) g/dl Hct 43.2 (37.0-47.0) % Plt Count 298 (160-400) X10*3/uL BMP 10/31/22 18:35 Sodium 138 Potassium 3.6 Chloride 106 Carbon Dioxide 23 BUN 9 Creatinine 0.74 Calcium 9.1 Liver Function 10/31/22 Range/Units 18:35 Total Bilirubin 0.6 (0.0-1.0) mg/dL Direct Bilirubin 0.2 (0.0-0.5) mg/dL AST 15 (5-31) U/L ALT 11 (0-31) U/L Alkaline Phosphatase 51 (39-117) U/L Albumin 4.4 (3.5-5.0) g/dL Urine 10/31/22 Range/Units 18:35 Urine Color Yellow Urine Appearance Clear Urine pH 6.0 (5.0-9.0) Ur Specific [place] 1.010 (1.005-1.025) Urine Protein Trace (Neg-Trace) mg/dL Urine Glucose (UA) Negative (Negative) mg/dL Imaging US - abdomen: Radiologist's impression: ITS Impressions Pelvic/Transvag US 10/31/22 18:59 IMPRESSION: No evidence of intrauterine gestation. There is a 2.4 cm left adnexal mass, adjacent but separate from the left ovary, with a peripheral hypervascular rim, suspicious for an ectopic in the appropriate clinical context. Correlation with quantitative hCG and OB consultation is recommended. Assessment and Plan (1) Ectopic : Status: Acute Plan Discussed with the patient the findings on ultrasound 2.4 cm mass separate from the left ovary suspicious for ectopic with no evidence of intrauterine , also discussed the patient the hCG level at 4817 above 3500 is high suspicion of ectopic although nonviable intrauterine or a viable intrauterine is a very remote possibility. Discussed with the patient treatment options including the following: Option 1, expected management, repeat HCG every 48 hours with warning signs of SAB versus ectopic with the risk of delaying diagnosis of an ectopic intra-abdominal rupture and bleeding and risk of morbidity mortality and benefit of preventing methotrexate treatment and its possible exposure of a possible intrauterine and risk of teratogenicity and SAB. Option 2, to start with Suction D and C to rule out intrauterine followed by HCG levels and determined SAB versus ectopic, the risk of this approach being termination of a live intrauterine that is undetected by ultrasound, the risk being delayed diagnosis of ectopic and/or potential consequences. Option 3 is methotrexate treatment; All the pros and cons risks and benefits of this approach were discussed with the patient including but not limited to, failure rate of MTX ~15%, possible exposure of methotrexate teratogenicity to an early intrauterine not diagnosed by ultrasound with the risk of SAB and severe deformities, possibility of a early intrauterine . The patient decided to proceed with methotrexate treatment. Discussed with the patient the common side effects of the medication, including skin rash, sensitivity to the sun, indigestion, nausea, sore mouth were discussed with the patient. Less common side effects (occurring in less than 2% of patients) were also discussed a drop in blood cell counts or temporary elevation in liver enzymes. All questions were answered and recommended follow up reviewed. Plan methotrexate 50 mg/m2 BSA x 1.86 m2 BSA = 93 mg methotrexate IM x 1. Patient information sheet was given to the patient and instructed patient not to have intercourse or perform strenuous exercises or activities avoid sun exposure. The patient was given to the instructions to follow up with hCG day 4 and 7 and follow with an office follow-up appointment day 7. Signs and symptoms of ruptured ectopic discussed with the patient, she is to call or go to the ER if abdominal pain occurs, Otherwise will follow up with HCG day 4 and repeat HCG day 7 and a follow-up office appointment. All questions were answered pt verbalized understanding. Time Spent With Patient Time: Total time managing care of this patient today ____ minutes.
[2022-10-31 21:58] VITALS: BMI 27.7
--- NOTE | 2022-10-31 22:01 | PC.NURSE ---
75.5 kg for weight
[2022-10-31 22:19] VITALS: BP 122/64; PULSE 80; RESP 16; TEMP 36.8; O2SAT 97
[2022-11-01 08:34] LABS: CT PCR NOT DETECTED (Not Detect.); NG PCR NOT DETECTED (Not Detect.)
[2022-11-01 08:55] LABS: BV Int Neg Control Negative (Negative); BV Int Pos Control Positive (Positive)
== END 2022-10-31 22:50 | disposition home or self-care (01) ==
PROVIDERS: Physician Assistant; Emergency Provider Emergency Medicine; PCP Internal Medicine
DX: O00.90 Unspecified ectopic pregnancy without intrauterine pregnancy (principal); R10.2 Pelvic and perineal pain; Z20.822 Contact with and (suspected) exposure to COVID-19; Z20.828 Contact with and (suspected) exposure to other viral communicable diseases; Z79.899 Other long term (current) drug therapy
CPT/HCPCS: 0353U; 36415; 76801; 76817; 80048; 80076; 81001; 83735; 84702; 85025; 86900; 86901; 87086; 87480; 87510; 87660; 96372; 99283; 99284; J9250

== ENCOUNTER 2022-11-03 11:28 | Outpatient (REF) | payer OTHER, SELFPAY ==
[2022-11-03 12:53] LABS: HCG Quantitative 5629 mIU/mL
== END 2022-11-03 11:29 | disposition home or self-care (01) ==
LOC: HO.LAB 11:28
PROVIDERS: Emergency Medicine; PCP Internal Medicine; Visit Provider Obstetrics & Gynecology
DX: O00.90 Unspecified ectopic pregnancy without intrauterine pregnancy (principal)
CPT/HCPCS: 36415; 84702

== ENCOUNTER 2022-11-06 07:34 | Outpatient (REF) | payer OTHER, SELFPAY ==
--- NOTE | ~2022-11-06 | US_ITS ---
EXAMINATION: US OBSTETRICAL ULTRASOUND CLINICAL INFORMATION: Unspecified ectopic without intrauterine COMPARISON: Examination of 6 days previous. TECHNIQUE: The time examination, transabdominal and transvaginal evaluation. FINDINGS: There is fluid in the endometrial canal with endometrial stripe thickness 4 mm. No intrauterine sac observed. MATERNAL ADNEXA: The right maternal ovary measures 2.8 x 1.3 x 1.2 cm. No distinct focal abnormality. The left maternal ovary measures 2.4 x 1.6 x 1.4 cm. There is a 2 x 1.7 x 1.6 cm left adnexal mass demonstrating peripheral flow, a saclike structure, and a possible decidual reaction. US/US OB pelvic and transvaginal IMPRESSION: Sonographic findings of a complex left adnexal mass without any distinct intrauterine gestation, suspicious for ectopic gestation in the appropriate clinical circumstances. Obstetric consultation as well as follow-up beta ECG and ultrasound determinations recommended.
[2022-11-06 08:28] LABS: HCG Quantitative 5337 mIU/mL
[2022-11-06 09:50] LABS: Hemoglobin 12.4 g/dl (12.0-16.0); Mean Corpuscular HGB Conc 34.4 g/dl (31.0-35.0); Mean Corpuscular Hemoglobin 30.6 pg (27.0-33.0); Mean Corpuscular Volume 88.9 fL (80.0-98.0); Mean Platelet Volume 9.5 fL (9.4-12.3); Platelet Count 270 X10*3/uL (160-400); Red Blood Count 4.05 X10*6/uL (4.20-5.50); Red Cell Distribution Width 12.2 % (11.0-16.0); White Blood Count 6.5 X10*3/uL (4.8-10.8)
[2022-11-06 11:12] LABS: Alanine Aminotransferase 30 U/L (0-31); Aspartate Amino Transferase 21 U/L (5-31); Estimated Glomerular Filt Rate > 60
== END 2022-11-06 07:35 | disposition home or self-care (01) ==
LOC: HO.LAB 07:34
PROVIDERS: PCP Internal Medicine; Visit Provider Obstetrics & Gynecology
DX: O00.90 Unspecified ectopic pregnancy without intrauterine pregnancy (principal)
CPT/HCPCS: 36415; 76801; 76817; 82565; 84450; 84460; 84702; 85027

== ENCOUNTER 2022-11-09 07:53 | Outpatient (REF) | payer OTHER, SELFPAY ==
[2022-11-09 09:09] LABS: HCG Quantitative 4763 mIU/mL
== END 2022-11-09 07:54 | disposition home or self-care (01) ==
LOC: HO.LAB 07:53
PROVIDERS: Visit Provider Obstetrics & Gynecology
DX: O00.90 Unspecified ectopic pregnancy without intrauterine pregnancy (principal)
CPT/HCPCS: 36415; 84702

== ENCOUNTER 2022-11-12 10:17 | Outpatient (REF) | payer OTHER, SELFPAY ==
[2022-11-12 11:11] LABS: HCG Quantitative 3396 mIU/mL
== END 2022-11-12 10:18 | disposition home or self-care (01) ==
LOC: HO.LAB 10:17
PROVIDERS: PCP Internal Medicine; Visit Provider Obstetrics & Gynecology
DX: O00.90 Unspecified ectopic pregnancy without intrauterine pregnancy (principal)
CPT/HCPCS: 36415; 84702

== ENCOUNTER → 2022-11-13 08:04 | Outpatient (BNVA) | payer OTHER, SELFPAY | PROVIDERS: PCP Internal Medicine; Visit Provider Obstetrics & Gynecology ==

== ENCOUNTER 2022-11-16 11:38 | Outpatient (REF) | payer OTHER, SELFPAY ==
--- NOTE | ~2022-11-16 | US_ITS ---
EXAMINATION: US OBSTETRICAL ULTRASOUND CLINICAL INFORMATION: Follow-up left adnexal mass with vaginal bleeding and pain. COMPARISON: OB ultrasound 11/06/2022 and 10/31/2022. LMP: 09/12/2022. Gestational age by maternal dates is 9 weeks 2 days. Estimated date of delivery by maternal dates is 06/14/2023. TECHNIQUE: Ultrasound of the maternal pelvis is performed using transabdominal and transvaginal transducers. Transvaginal imaging is performed due to inadequate visualization transabdominally. M-mode Doppler is also performed. FINDINGS: The previously seen fluid in the endometrial canal is not present on the current study. The uterus is unremarkable measuring 7.2 x 3.5 x 3.6 cm. The endometrium is 4 mm in thickness. Right ovary measures 2.3 x 1.0 x 1.2 cm and appears unremarkable. There is limited visualization of the left ovary secondary to an adnexal mass (see below). The left ovary measures 1.3 x 0.9 x 0.8 cm. There is a left adnexal mass which has continued to increase in size from 10/31/2022. This now measures 3.5 x 2.3 x 3.3 cm, measuring 2.4 x 1.7 x 1.6 cm on 11/06/2022 and 1.0 x 0.7 x 0.8 cm on 10/31/2022. A small amount of free fluid is present in the cul-de-sac US/US OB pelvic and transvaginal IMPRESSION: A gestational sac is not seen within the uterus and a left adnexal mass continues to increase in size when compared with studies beginning on 10/31/2022. No gestational sac or pole is seen. Please correlate with beta hCG for the possibility of an ectopic .
[2022-11-16 12:23] LABS: Hemoglobin 12.2 g/dl (12.0-16.0); Mean Corpuscular HGB Conc 33.9 g/dl (31.0-35.0); Mean Corpuscular Hemoglobin 30.3 pg (27.0-33.0); Mean Corpuscular Volume 89.3 fL (80.0-98.0); Mean Platelet Volume 9.3 fL (9.4-12.3); Platelet Count 314 X10*3/uL (160-400); Red Blood Count 4.03 X10*6/uL (4.20-5.50); Red Cell Distribution Width 12.6 % (11.0-16.0)
[2022-11-16 12:48] LABS: HCG Quantitative 1515 mIU/mL
== END 2022-11-16 11:39 | disposition home or self-care (01) ==
LOC: HO.US 11:38
PROVIDERS: PCP Internal Medicine; Visit Provider Obstetrics & Gynecology
DX: O00.90 Unspecified ectopic pregnancy without intrauterine pregnancy (principal)
CPT/HCPCS: 36415; 76801; 76817; 84702; 85027

== ENCOUNTER 2022-11-16 13:52 | Day surgery (SDC) | payer OTHER, SELFPAY ==
[2022-11-16] VITALS (8 sets, daily range): BP systolic 116–125; BP diastolic 65–76; PULSE 77–100; RESP 16–18; TEMP 36.3–37.5; O2SAT 97–100; BMI 27.0
--- NOTE | 2022-11-16 13:59 | P.CONAN_ITS ---
[facility] Active Problems Active Problems: All Active Problems (Updated 11/16/22 @ 13:14 by Jose Eduardo Sams MD) Ectopic (Acute) Low vitamin D level (Acute) Generalized anxiety disorder (Acute) Spinning sensation (Acute) Memory loss (Acute) Fatigue (Acute) Headache (Acute) Anxiety (Acute) Depression (Acute) Past Medical History Medical History Generalized anxiety disorder No known health problems Family History Family History Mother Arthritis Father No problems noted. 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 Cognitive needs: No Hearing needs: No Vision needs: No Meds Allergies Allergy/AdvReac Type Severity Reaction Status Date / Time prednisone [PREDNISONE] Allergy Intermediate HIVES Verified 11/16/22 13:09 codeine [CODEINE] Allergy Unknown VOMITTING Verified 11/16/22 13:09 Home Medications Medication Instructions Recorded Confirmed Last Taken Type No Known Home Meds 11/13/22 11/13/22 Unknown History Exam Exam Date and Time: November 16, 2022 1359 Air[address] Mallampati Class: II TM Dist: >3cm Neck ROM: Full Assessment and Plan Assessment Anesthesia Assessment: Anesthesia Plan Discussed Final Anesthetic Review Family History of Problems with Anesthesia: No History of Problems with Anesthesia: No NPO: Yes ASA Class: II and Emergency Final Preanesthetic Review: No Changes in Pt Med Stat, Meds/Allgs Chart Review ed, Consent Obtained/Reviewed and Anes Risks/Benef Reviewed Patient Risk: Intermediate Procedure Risk: Intermediate Anesthetic Plan Anesthetic Plan: GA Disposition: Standard PACU
--- NOTE | 2022-11-16 15:39 | P.BOP_ITS ---
Brief Operative Note Date of Service: 11/16/22 Pre-op diagnosis: Left tubal ectopic with possible rupture Post-op diagnosis: same (250 cc hemoperitoneum) Procedure: Laparoscopic bliateral salpingectomy Surgeon: Jose Eduardo Sams MD Anesthesia: GETA Was an Car Electronics Installer used for this Procedure?: No Estimated blood loss (mL): 0 Pathology: other (Left partial fallopian tube with ectopic ) Condition: stable Disposition: PACU
--- NOTE | 2022-11-16 15:40 | W.PM.OPN ---
Operative Note Operative Note Date of Service: 11/16/22 Narrative: PREOPERATIVE DIAGNOSIS:? Left tubal ectopic with possible rupture POSTOPERATIVE DIAGNOSIS:?3-4 cm left ecotpic filling up most of the tubal length with bluish discoloration, 250 cc of hemoperitoneum Procedure: Left partial salpingectomy QBL: Minimal Anesthesia: GETA SURGEON:? Jose Eduardo Sams MD?? Integrity Assessor:None Complications: None Pathology: Left partial Fallopian tubes? DESCRIPTION OF PROCEDURE:?The patient was taken to the OR where general anesthesia was easily obtained. The patient was then prepped and draped in a sterile fashion and placed in dorsal lithotomy position. A speculum was introduced into the patient?s vagina for cervical visualization. a was introduced into the patient?s cervix. The single tooth tenaculum was then removed and hemostasis was assured?using pressure. a Velazquez catheter?was inserted and clear urine started draining. Gloves were changed to clean ones. Attention was then drawn to the abdomen where a 10 mm longitudinal incision was done intra umbilical and carried down all the way to the fascia, which was tented?up using 2 Cale clamps and was nicked in the midline and then extended on both end of the incision?, them using 2 pick?ups the peritoneum?was entered with Metzenbaum scissors and under direct visualization, a 10 mm Mccauley trocar was introduced into the patient?s abdomen. Once intraperitoneal placement was confirmed with direct visualization, pneumoperitoneum was started & was easily obtained.Then, two fingerbreadths above the pubic symphysis and towards the?right lower quadrant, under direct visualization, a 10 mm trocar was then introduced into the patient?s abdomen. and a 3rd 5 mm trocar in the left?lower quadrant was placed?in a similar manner. The patient was placed in Trendelenburg position, Inspection revealed left tubal filling up most of the left tube was bluish discoloration and 250 cc of hemoperitoneum, normal bilateral ovaries and normal right fallopian tube. Attention was then drawn to the left fallopian tube. Since most of the left tube was filled up with the ectopic with bluish discoloration decision was made to proceed with left partial salpingectomy instead of salpingostomy The IP ligament was identified and fallopian tube was then grasped by the fimbria and incised from the mesosalpinx using ligasure device, using cautery for hemostasis and cutting afterwards a bite at a time all the way to the area medial to the edge of the ectopic of the left fallopian tube. Good hemostasis was noted from the left fallopian tube sites and the operative site. Specimen were then removed from the patient?s abdomen using endobag from the 10 mm trocar through the right lower quadrant. Copious irrigation was done. Once good hemostasis was noted from the patient?s abdomen, pneumoperitoneum was deflated and all trocars were removed. Infraumbilical fascia was closed with 0 Vicryl and interrupted suture. The skin was closed with 4-0 Vicryl. The Right and left?lower quadrant ports were closed with 0 Vicryl. Bupivicaine 0.25 10 cc were injected subcuticularly in the 3 incisions. Then speculum was put back in the vagina inspection revealed?hemostasis at the site of the tenaculum, the?sponge stick was removed?from the patient's vagina and Velazquez was draining clear urine was taken out too. Sponge, lap and needle counts were correct x2. The patient was taken to the recovery room in stable condition.
[2022-11-16] MEDS: fentaNYL citrate/PF 100 MCG/2 ML VIAL 50 MCG IVPUSH ×2 (15:50→15:55)
[2022-11-16] MEDS: oxyCODONE HCl Immed Release 5 MG TABLET PO (16:19)
[2022-11-16] MEDS: Acetaminophen 1,000 MG/100 ML PIGGYBACK 400 MG IV (16:24)
== END 2022-11-16 17:08 | disposition home or self-care (01) ==
PROVIDERS: PCP Internal Medicine; Visit Provider Obstetrics & Gynecology
PROC: 10T24ZZ Resection of Products of Conception, Ectopic, Percutaneous Endoscopic Approach (ICD-10-PCS; CPT 59150; principal; 2022-11-16 14:00)
DX: O00.102 Left tubal pregnancy without intrauterine pregnancy (principal); R10.2 Pelvic and perineal pain; K66.1 Hemoperitoneum; Z88.8 Allergy status to other drugs, medicaments and biological substances; F12.90 Cannabis use, unspecified, uncomplicated
CPT/HCPCS: 59151; 88305; J0131; J1100; J1170; J2250; J2405; J3010

== ENCOUNTER 2022-11-30 10:32 | Outpatient (REF) | payer OTHER, SELFPAY ==
[2022-11-30 11:52] LABS: HCG Quantitative 5 mIU/mL
== END 2022-11-30 10:33 | disposition home or self-care (01) ==
LOC: HO.LAB 10:32
PROVIDERS: PCP Internal Medicine; Visit Provider Obstetrics & Gynecology
DX: O00.90 Unspecified ectopic pregnancy without intrauterine pregnancy (principal)
CPT/HCPCS: 36415; 84702

== ENCOUNTER 2022-12-09 10:46 | Outpatient (REF) | payer OTHER, SELFPAY ==
[2022-12-09 12:32] LABS: HCG Quantitative < 2 mIU/mL
== END 2022-12-09 10:47 | disposition home or self-care (01) ==
LOC: HO.LAB 10:46
PROVIDERS: PCP Internal Medicine; Visit Provider Obstetrics & Gynecology
DX: O00.90 Unspecified ectopic pregnancy without intrauterine pregnancy (principal)
CPT/HCPCS: 36415; 84702

== ENCOUNTER 2025-03-05 14:44 | Outpatient (AMB) | payer OTHER, SELFPAY ==
--- NOTE | 2025-03-05 14:49 | MHC.PC.OV ---
Vital Signs 03/05/25 14:50 Height 5 ft 5 in Weight 167 lb 4 oz BMI 27.8 BP 102/62 Blood Pressure Location Lt brachial Position Sitting Pulse 75 Pulse Source Pulse Oximeter Temp 97.3 F Temp Source Temporal Artery Scan Pulse Oximetry (%) 97 Oxygen Delivery Method Room Air Intake Visit Reasons: annual pe/blood work f/u Intake Note: Patient is here today for a physical. Teacher Home Therapy Required: No Portfolio Director: Not Required per policy Accompanied by: Self / Same As Patient Allergies prednisone (PREDNISONE) Allergy (Intermediate, Verified 03/05/25 14:49) HIVES codeine (CODEINE) Allergy (Unknown, Verified 03/05/25 14:49) VOMITTING Tobacco use date assessed: 03/05/25 Dental Screening Dental Screen Date: 03/05/25 Did you have a dental visit in the last 12 months?: Yes Did you have a dental problem in the last 6 months where you did not have access to dental care?: No Was dental information given to patient?: Patient has dentist [facility] Medical History Generalized anxiety disorder No known health problems Surgical History (Updated 03/05/25 @ 14:53 by SAIGE Baker) History of salpingectomy Family History Mother Arthritis Father No problems noted. 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 1. Little interest or pleasure in doing things: several days 2. Feeling down, depressed, or hopeless: several days 3. Trouble falling or staying asleep, or sleeping too much: not at all 4. Feeling tired or having little energy: several days 5. Poor appetite or overeating: several days 6. Feeling bad about yourself - or that you are a failure or have let yourself or your family down: not at all 7. Trouble concentrating on things, such as reading the newspaper or watching television: several days 8. Moving or speaking so slowly that other people could have noticed. Or the opposite - being so fidgety or restless that you have been moving around a lot more than usual: not at all 9. Thoughts that you would be better off or of hurting yourself in some way: not at all Total score: 5 Depression Screening Interpretation: Positive Depression Screening Done: Yes Source: Developed by Drs. Iam Serrato, Amanda Bryant, Michoacano Kraus and colleagues, with an educational meggan from [employer]. Thrive Questionnaire Date Thrive assessed: 03/05/25 I am a: Patient What is your living situation today?: I have a steady place to live Within the past 12 months, did the food you bought not last and you didn't have the money to get more?: Never true Within the past 12 months, did you worry whether your food would run out before you got money to buy more?: Never true Do you have trouble paying for medicines?: I choose not to answer this question Do you have trouble getting transportation to medical appointments?: No Do you have trouble paying your heating and electricity bill?: No Do you have trouble taking care of your child, family member or friend?: No Do you have trouble with day-to-day activities such as bathing, preparing meals, shopping, managing finances, etc.?: Yes Are you currently unemployed and looking for a job?: No Are you interested in more education?: No Please select the resources that you would like help with: None Currently or been in a relationship where the following occur: No concerns reported THRIVE Score: 0 AUDIT C Alcohol Use Questionnaire (AUDIT-C) 1. How often do you have a drink containing alcohol?: 2-3 times a week 2. How many drinks containing alcohol do you have on a typical day when you are drinking?: 1 or 2 3. How often do you have six or more drinks on one occasion?: Less than monthly Total Score: 4 HERMES-7 AMB Questionnaire HERMES-7 Date HERMES - 7 assessed: 03/05/25 Feeling nervous, anxious, or on edge: 1 = Several days Not being able to stop or control worryin = Several days Worrying too much about different things: 1 = Several days Trouble relaxin = Several days Being so restless that it is hard to sit still: 0 = Not at all Becoming easily annoyed or irritable: 1 = Several days Feeling afraid as if something awful might happen: 0 = Not at all Total HERMES-7 score (0-4 normal; 5-9 mild; 10-14 moderate; 15-21 severe): 5 Source: Developed by Drs. Iam Serrato, Amanda Bryant, Michoacano Kraus and colleagues, with an educational meggan from [employer]. Physical exam (Primary Care) Vital Signs: Last Vital Signs Temp 97.3 F 03/05/25 14:50 Pulse 75 03/05/25 14:50 BP 102/62 03/05/25 14:50 Pulse Ox 97 03/05/25 14:50 Oxygen Delivery Method Room Air 03/05/25 14:50 BMI result Body Mass Index 27.8 Tobacco/Smoking Status: Tobacco use Status Tobacco use date assessed 03/05/25 03/05/25 14:50 Patient Tobacco Use Status Never used Tobacco 03/05/25 14:53 e-Cigarette/Vaping Use Never Used 03/05/25 14:53 PHQ-9: PHQ-9 Score PHQ-9: Total score 5 03/05/25 14:56 Depression Screening Interpretation: Positive Thrive Assessment: Date of Thrive Assessment Date Thrive assessed 03/05/25 03/05/25 14:50 Currently or been in a relationship where the following occur: No concerns reported Coding Level of Care Code Est Pt Prev Care 18-39y(91768) Diagnoses Annual physical exam Z00.00 Assessment & Plan Assessment & Plan (1) Annual physical exam: Code(s): Z00.00 - Encounter for general adult medical examination without abnormal findings Plan: History of Present Illness - The patient is a 34-year-old female presenting for a physical examination and evaluation of gastrointestinal symptoms. - Gastroesophageal reflux disease (GERD): Reports abdominal pressure, possibly related to indigestion, with a history of gastrointestinal issues. - Irritable bowel syndrome (IBS): Describes irregular bowel habits, with attempts at dietary changes showing mixed results. - Anxiety disorder: History of anxiety, previously treated with citalopram and trazodone, now managed without medication. - Ectopic with ruptured fallopian tube: Surgical history of ruptured fallopian tube due to ectopic , with ongoing health concerns post-surgery. - Social and lifestyle factors: Reports work-related stress and occasional alcohol and cannabis use, with reduced alcohol consumption recently. 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 - Living situation: Lives with her partner and his grandfather, providing care for the grandfather. - Substance use: Occasional alcohol and cannabis use, with a reduction in alcohol consumption over the past few years. Review of Systems - Gastrointestinal: Reports intermittent abdominal pressure and irregular bowel habits. Denies constipation-related discomfort. - Neurological: Reports feeling hungover upon waking without alcohol consumption. - Psychological: Reports ongoing anxiety, previously managed with medication, now managed without. - Sleep: Reports no difficulty sleeping, but does not feel refreshed upon waking. - Vision and Hearing: Denies any issues with vision or hearing. Physical Exam General: Cooperative and healthy appearing Nutritional Appearance: Well nourished Orientation/consciousness: Patient oriented x3 Limitations: No limitations Head: Normal to inspection General: Appearance normal, both eyes and all related structures Neck: Normal visual inspection Chest: Normal palpation of entire chest wall Respiratory: N ormal respiratory effort Neurology: Patient oriented x3, vision and hearing are good. Results Plan 1. Gastroesophageal Reflux Disease (Gerd) - Start PPI therapy for one month to assess improvement in symptoms. - Schedule follow-up in 30 days to review treatment outcomes. 2. Irritable Bowel Syndrome (Ibs) - Implement dietary changes and monitor for symptom changes. - Reassess need for additional treatment based on symptom persistence. 3. Anxiety Disorder - Continue current non-pharmacological management, emphasizing lifestyle adjustments. Discussion Notes I discussed with the patient the potential causes of her symptoms, including gastroesophageal reflux disease and irritable bowel syndrome. We agreed to initiate a trial of a proton pump inhibitor for one month to address possible reflux symptoms. I also recommended routine blood work to check thyroid function and other parameters. We will follow up in 30 days to assess the effectiveness of the treatment and make further decisions based on her response. Patient Instructions - Start taking the prescribed proton pump inhibitor daily for one month. - Schedule and complete routine blood work as soon as possible. - Return for a follow-up appointment in 30 days to review treatment progress.
[2025-03-05 14:50] VITALS: BP 102/62; PULSE 75; TEMP 36.3; O2SAT 97; BMI 27.8
--- OUTSIDE RECORDS SUMMARY | 2025-03-05 15:57 | XMS_ITS | Encounter Summary ---
Author Organization [facility] Address [address] [place] [id number] Phone Care Team Providers Care Hot Car Operator Name Role Phone Shady Gonzales MD Primary Care Provider Talib torres Encounter Details Date Type Department Care Team (Late st Contact Info) Description 07/07/2011 Documentation EM Family Medicine [address] [place] [address] Family Medicine, Physician [address] [place] [address] Social History Tobacco Use Types Packs/Day Years Used Date Smoking Tobacco: Never Assessed Comments Unknown Sex and Gender Information Value Date Recorded Sex Assigned at Not on file Legal Sex Female 4:51 PM EDT Gender Identity Not on file Sexual Orientation Not on file documented as of this encounter Plan of Treatment Not on file documented as of this encounter Visit Diagnoses Not on filedocumented in this encounter Care Teams Hot Car Operator Relationship Specialty Start Date End Date Shady Gonzales MD PCP - General 02/09/17 10/12/22 documented as of this encounter
--- OUTSIDE RECORDS SUMMARY | 2025-03-05 15:57 | XMS_ITS | Encounter Summary ---
Author Organization [facility] Address [address] [place] [phone] Phone Care Team Providers Care Ug Designer Name Role Phone Shady Gonzales MD Primary Care Provider Talib torres Encounter Details Date Type Department Care Team (Late st Contact Info) Description 09/16/2010 Documentation EM Family Medicine [address] [place], [place] [phone] Family Medicine, Physician [address] [place] [address] Social History Tobacco Use Types Packs/Day Years [...] on filedocumented in this encounter Care Teams Ug Designer Relationship Specialty Start Date End Date Shady Gonzales MD PCP - General 02/09/17 10/12/22 documented as of this encounter
--- OUTSIDE RECORDS SUMMARY | 2025-03-05 15:57 | XMS_ITS | Encounter Summary ---
Author Organization [facility] Address [address] [place] [address] Phone Care Team Providers Care Special Makeup Fx Artist Instructor Name Role Phone Shady Gonzales MD Primary Care Provider Talib torres Encounter Details Date Type Department Care Team (Late st Contact Info) Description 08/02/2012 Documentation EM Family Medicine [address] [place], [place] [phone] Family Medicine, Physician [address] [place] [address] Social History Tobacco Use Types Packs/Day Years [...] on filedocumented in this encounter Care Teams Special Makeup Fx Artist Instructor Relationship Specialty Start Date End Date Shady Gonzales MD PCP - General 02/09/17 10/12/22 documented as of this encounter
--- OUTSIDE RECORDS SUMMARY | 2025-03-05 15:57 | XMS_ITS | Encounter Summary ---
Author Organization [facility] Address [address] [place] [phone] Phone Care Team Providers Care Aligning Checker Name Role Phone Shady Gonzales MD Primary Care Provider Talib torres Encounter Details Date Type Department Care Team (Late st Contact Info) Description 02/15/2017 Conversion Encounter [facility] - [address] [address] Social History Tobacco Use Types Packs/Day Years Used Date Smoking Tobacco: Never Comments:Never smoker Comments Unknown Sex and Gender Information Value Date Recorded Sex Assigned at Not on file Legal Sex Female 4:51 PM EDT Gender Identity Not on file Sexual Orientation Not on file documented as of this encounter Plan of Treatment Not on file documented as of this encounter Visit Diagnoses Not on filedocumented in this encounter Care Teams Aligning Checker Relationship Specialty Start Date End Date Shady Gonzales MD PCP - General 02/09/17 10/12/22 documented as of this encounter
--- OUTSIDE RECORDS SUMMARY | 2025-03-05 15:57 | XMS_ITS | Encounter Summary ---
Author Organization [facility] Address [address] [place] [address] Phone Care Team Providers Care Assistant Project Manager Name Role Phone Shady Gonzales MD Primary Care Provider Talib torres Encounter Details Date Type Department Care Team (Late st Contact Info) Description 06/27/2011 Documentation EM Family Medicine [address] [place], [place] [phone] Family Medicine, Physician [address] [place] [address] Social History Tobacco Use Types Packs/Day Years [...] on filedocumented in this encounter Care Teams Assistant Project Manager Relationship Specialty Start Date End Date Shady Gonzales MD PCP - General 02/09/17 10/12/22 documented as of this encounter
--- OUTSIDE RECORDS SUMMARY | 2025-03-05 15:57 | XMS_ITS | Encounter Summary ---
Author Organization [facility] Address [address] [place] [address] Phone Care Team Providers Care Solution Mixer Name Role Phone Shady Gonzales MD Primary Care Provider Talib torres Encounter Details Date Type Department Care Team (Late st Contact Info) Description 06/27/2011 Documentation EM Family Medicine [address] [place], [place] [phone] Family Medicine, Physician [address] [place] [address] Social History Tobacco Use Types Packs/Day Years [...] on filedocumented in this encounter Care Teams Solution Mixer Relationship Specialty Start Date End Date Shady Gonzales MD PCP - General 02/09/17 10/12/22 documented as of this encounter
--- OUTSIDE RECORDS SUMMARY | 2025-03-05 15:57 | XMS_ITS | Clinical Summary ---
Author Organization [facility] Address [address] [place] [phone] Phone Care Team Providers Care Chair Installer Name Role Phone Unavailable Primary Care Provider Unavailabl e Immunizations Immunization Administration Dates Next Due DTP 12/02/1996, 4,06/08/1992,03/18,01/15/1992 HPV, Quadrivalent 01/30/2008,03/26/2007,01/23/20 07 Hep A, ped/adol 11/21/2006,01/05/2006 Hep B, ped/adol 12/02/1996,12/14/1995,11/02/1995 Hib (PRP-T) 02/25/1993, 2,03/18/1992,01/14 Influenza, intranasal, trivalent 08/01/2012,06/02,04/01/2010 MMR 11/02/1995,02/25/1993 Meningococcal Conj (Menactra) MCV4P 01/05/2006 OPV 12/02/1996, 4,03/18/1992,01/14 Td (adult) (MBL), 2 Lf tetan us toxoid, PF, adsorbed 01/06/2003 Tdap 01/30/2008 Varicella 01/30/2008,01/06/2003 Family History Relation Name Status Comments Father Father: ETOH/dr ug Mother Alive Mother: Alive a nd well Other Family history of Hypertension Social History Tobacco Use Types Packs/Day Years Used Date Smoking Tobacco: Never Comments:Never smoker Comments Unknown Sex and Gender Information Value Date Recorded Sex Assigned at Not on file Legal Sex Female 4:51 PM EDT Gender Identity Not on file Sexual Orientation Not on file Last Filed Vital Signs Vital Sign Reading Time Taken Comments Blood Pressure 110/60 08/01/2012 12:00 AM EST Pulse - - Temperature 36.5 C (97.7 F) 08/01/2012 12:00 AM EST Respiratory Rate - - Oxygen Saturation - - Inhaled Oxygen Concentration - - Weight 54.9 kg (121 lb) 08/01/2012 12:00 AM EST Height 164.6 cm (5' 4.8 ) 08/01/2012 12:00 AM ES T Body Mass Index 20.26 08/01/2012 12:00 AM EST Plan of Treatment Health Maintenance Due Date Last Done Comments DTaP,Tdap,and Td Vaccines (7 - Td or Tdap) 01/29/2018 01/30/2008, 01/06/2003, 12/02/1996, Additional history exists Influenza Vaccines (#1) 2025 08/01/19 13, 06/27/2011, 04/01/2010 COVID-19 Vaccine ( season) 2025 HIB Vaccines Completed 02/25/1993, 01/1992, 03/18/1992, Additional history exists MMR Vaccines Completed 11/02/1995, 02/25/1993 Hepatitis B Vaccines Completed 12/02/1996, 12/14/1995, 11/02/1995 IPV Vaccines Completed 12/02/1996, 03/1994, 03/18/1992, Additional history exists Meningococcal Vaccine Aged Out 01/05/2006 No oscar patti eligible based on patient's age to complete this topic Hepatitis A Vaccines Completed 11/21/2006, 01/06/20 HPV Vaccines Completed 01/30/2008, 03/03, 01/22/2007 Varicella Vaccines Completed 01/30/2008, 01/06/2003 Men B Vaccine Aged Out No longer elig ible based on patient's age to complete this topic Pneumococcal Vaccine Aged Out No long er eligible based on patient's age to complete this topic Procedures * Due to [place] [employer] [place] law, this organization might not be sharing sensitive test results. Procedure Name Priority Date/Time Associated Diagnosis Comments CHLAMYDIA AND GONORRHEA, AMPLIFIED Routine 10/03/2010 12:17 PM EDT from Last 3 Months or Most Recently Relevant to Health Maintenance Results * Due to [place] [employer] [place] law, this organization might not be sharing sensitive test results. * Chlamydia and Gonorrhoea, Amplified (10/03/2010 12:17 PM EDT) Pathologist [facility] URINE GC AMP PROBE NEGATIVE [facility] Comment: NO NEISSERIA GONORRHOEAE RNA DETECTED IN THIS PATIENT'S SAMPLE. (REFERENCE RANGE/NORMAL VALUE: NOT DETECTED) NOTE: THIS TEST USES ALMOND PASTE MOLDER MEDIATED AMPLIFICATION METHOD TO DETECT rRNA FROM C.TRACHOMATIS AND N.GONORRHOEAE. A NEGATIVE RESULT DOES NOT PRECLUDE INFECTION WITH C.TRACHOMATIS OR N.GONORRHOEAE BECAUSE RESULTS ARE DEPENDENT ON ADEQUATE SPECIMEN COLLECTION, ABSENCE OF INHIBITORS, AND SUFFICIENT rRNA TO BE DETECTED. THE APTIMA COMBO2 ASSAY IS NOT INTENDED FOR THE EVALUATION OF SUSPECTED SEXUAL ABUSE OR FOR OTHER MEDICO LEGAL INDICATIONS. IS TRUE FOR ALL NON CULTURE METHODS, A POSITIVE SPECIMEN OBTAINED FROM A PATIENT AFTER THERAPEUTIC TREATMENT CANNOT BE INTERPRETED INDICATING THE PRESENCE OF VIABLE C.TRACHOMATIS OR N.GONORRHOEAE. THERAPEUTIC FAILURE OR SUCCESS CANNOT BE DETERMINED WITH THE APTIMA COMBO2 ASSAY SINCE NUCLEIC ACID MAY PERSIST FOLLOWING APPROPRIATE ANTIMICROBIAL THERAPY. A NEGATIVE URINE RESULT FOR A PATIENT WHO IS CLINICALLY SUSPECTED OF HAVING A CHLAMYDIAL OR GONOCOCCAL INFECTION DOES NOT RULE OUT THE PRESENCE OF C.TRACHOMATIS OR N.GONORRHOEAE IN THE UROGENITAL TRACT. TESTING OF AN ENDOCERVICAL(FEMALE) OR URETHRAL(MALE) SPECIMEN IS RECOMMENDED IF THERE IS HIGH CLINICAL SUSPICION OF INFECTION. PRESERVCYT LIQUID PAP AND URINE SAMPLING ARE NOT DESIGNED TO REPLACE CERVICAL EXAMS AND ENDOCERVICAL SAMPLES FOR DIAGNOSIS OF FEMALE UROGENITAL INFECTIONS. PATIENTS MAY HAVE CERVICITIS, URETHRITIS, URINARY TRACT INFECTIONS, OR VAGINAL INFECTIONS DUE TO OTHER CAUSES OR CONCURRENT INFECTIONS WITH OTHER AGENTS. URINE CHLAMYDIA AMP PROBE NEGATIVE [facility] Comment: NO CHLAMYDIA TRACHOMATIS RNA DETECTED IN THIS PATIENT'S SAMPLE. (REFERENCE RANGE/NORMAL VALUE: NOT DETECTED) 10/03/2010 12:1 7 PM EDT Narrative [facility] - 10/03/2010 12:17 PM EDT URINE CHLAMYDIA GC AMP PROBE us Shady Gonzales MD LAB MICROBIOLOGY - GENERAL OR DERABLES Final Result [facility] [address] [place] [address], from Last 3 Months or Most Recently Relevant to Health Maintenance
--- OUTSIDE RECORDS SUMMARY | 2025-03-05 15:57 | XMS_ITS | Clinical Summary ---
Author Organization [facility] Address [address] [place] [address] Phone Care Team Providers Care Ammonia Box Operator Name Role Phone Unknown, Unknown Primary Care Provider Talib torres Allergies Active Allergy Reactions Criticality Noted Date Comments Prednisone 05/07/2018 Medications therapeutic multivitamin tablet Take 1 tablet by mouth daily. Active docosahexanoic acid/epa (FISH OIL ORAL) Take by mouth. Active lactobacillus rhamnosus GG-inulin (CULTURELLE PROBIOTIC) 10 billion cell -200 mg CpSP Take 200 mg by mouth daily. Active etonogestrel (NEXPLANON) 68 mg Impl Inject 68 mg into the skin Once every 3 years. Active metroNIDAZOLE (FLAGYL) 500 MG tablet TK 1 T PO BID FOR 7 DAYS 0 06/05/2018 Active Active Problems No known active problems Immunizations Immunization Administration Dates Next Due Tdap 05/07/2018 Social History Tobacco Use Types Packs/Day Years Used Date Smoking Tobacco: Never Smokeless Tobacco: Never Alcohol Use Standard Drinks/Week Comments Yes 0 (1 standard drink = 0.6 oz pur e alcohol) 3 drinks weekly Education Answer Date Recorded Are you interested in more education? Not on manuel e 10/27/2022 Are you concerned about learning? Not on file 10/27/2022 No 10/27/2022 No 10/27/2022 Digital Access Answer Date Recorded No 11/24/2022 No 11/24/2022 No 11/24/2022 Reliable internet access at home? Not on file 11/24/2022 Device with a working camera? Not on file Comments Unknown Sex and Gender Information Value Date Recorded Sex Assigned at Female 05/07/2018 4:00 PM EST Legal Sex Female 8:59 PM EDT Gender Identity Female 05/07/2018 4:00 PM EST Sexual Orientation Straight 05/07/2018 4: 00 PM EST Last Filed Vital Signs Vital Sign Reading Time Taken Comments Blood Pressure 138/83 05/07/2018 3:57 PM EST Pulse 94 05/07/2018 3:57 PM EST Temperature 36.6 C (97.9 F) 05/07/2018 3:57 PM EST Respiratory Rate 16 05/07/2018 3:57 PM EST Oxygen Saturation 99% 05/07/2018 3:57 PM EST Inhaled Oxygen Concentration - - Weight 68.9 kg (152 lb) 06/07/2018 9:04 AM EST Height 165.1 cm (5' 5 ) 06/07/2018 9:04 AM EST Body Mass Index 25.29 06/07/2018 9:04 AM EST Plan of Treatment Health Maintenance Due Date Last Done Comments DEPRESSION SCREENING 2003 HEPATITIS C SCREENING 10/30/2009 HIV ONE-TIME SCREENING (18-65 YEARS) 10/30/2009 PAP SMEAR 10/30/2012 INFLUENZA VACCINE (#1) 2025 3, 06/27/2011, 04/01/2010 COVID-19 VACCINE (2024- season) 2025 06/07/2021, 05/17/2021 Adult Td,Tdap Booster 05/07/2028 05/07/2018 , 01/30/2008, 01/06/2003 HIB VACCINES Completed 02/25/1993, 01/1992, 03/18/1992, Additional history exists MENINGOCOCCAL VACCINES (ACWY) Aged Out 01/05/2006 No longer eligible based on patient's age to complete this topic HEPATITIS A VACCINES Completed 11/21/2006, 01/06/20 SMOKING STATUS SCREENING (Once After 26 Yrs) Completed 06/07/2018 MENINGOCOCCAL VACCINES (B) Aged Out N o longer eligible based on patient's age to complete this topic PNEUMOCOCCAL VACCINES (0-49 years) Aged Out No longer eligible based on patient's age to complete this topic Medical Devices Not on file Insurance [address] [place], [place] [id number] [address] [place] [address] [place] [address] HMO [employer] Care Teams Ammonia Box Operator Relationship Specialty Start Date End Date Unknown, Unknown, PCP - General 05/07/18 Additional Source Comments The information contained in this document represents components of the legal health record. It is not the complete legal health record.[facility]
--- OUTSIDE RECORDS SUMMARY | 2025-03-05 15:57 | XMS_ITS | Encounter Summary ---
Author Organization [facility] Address [address] [place] [id number] Phone Care Team Providers Care Dental Laboratory Technology Teacher Name Role Phone Shady Gonzales MD Primary Care Provider Talib torres Encounter Details Date Type Department Care Team (Late st Contact Info) Description 04/28/2011 Documentation EM Family Medicine [address] [place], [place] [id number] Family Medicine, Physician [address] [place] [address] Social History Tobacco Use Types Packs/Day Years [...] on filedocumented in this encounter Care Teams Dental Laboratory Technology Teacher Relationship Specialty Start Date End Date Shady Gonzales MD PCP - General 02/09/17 10/12/22 documented as of this encounter
--- OUTSIDE RECORDS SUMMARY | 2025-03-05 15:57 | XMS_ITS | Encounter Summary ---
Author Organization [facility] Address [address] [place] [phone] Phone Care Team Providers Care Count Room Clerk Name Role Phone Shady Gonzales MD Primary Care Provider Talib torres Encounter Details Date Type Department Care Team (Late st Contact Info) Description 04/28/2011 Documentation EM Family Medicine [address] [place], [place] [phone] Family Medicine, Physician [address] [place] [address] Social History Tobacco Use Types Packs/Day Years [...] on filedocumented in this encounter Care Teams Count Room Clerk Relationship Specialty Start Date End Date Shady Gonzales MD PCP - General 02/09/17 10/12/22 documented as of this encounter
--- OUTSIDE RECORDS SUMMARY | 2025-03-05 15:57 | XMS_ITS | Encounter Summary ---
Author Organization [facility] Address [address] [place] [id number] Phone Care Team Providers Care Vinyl Cutter Name Role Phone Shady Gonzales MD Primary Care Provider Talib torres Encounter Details Date Type Department Care Team (Late st Contact Info) Description 08/02/2012 Documentation EM Family Medicine [address] [place], [place] [phone] Family Medicine, Physician [address] [place] [address] Social History Tobacco Use Types Packs/Day Years [...] on filedocumented in this encounter Care Teams Vinyl Cutter Relationship Specialty Start Date End Date Shady Gonzales MD PCP - General 02/09/17 10/12/22 documented as of this encounter
== END 2025-03-05 15:18 | disposition home or self-care (01) ==
LOC: HO.HMCH 14:45
PROVIDERS: PCP Internal Medicine; Visit Provider Internal Medicine
DX: Z00.00 Encounter for general adult medical examination without abnormal findings (principal)

== ENCOUNTER 2025-03-05 14:44 | Outpatient (REF) | payer OTHER, SELFPAY ==
[2025-03-05 16:17] LABS: Hematocrit 38.1 % (37.0-47.0); Hemoglobin 12.7 g/dl (12.0-16.0); Mean Corpuscular HGB Conc 33.3 g/dl (31.0-35.0); Mean Corpuscular Hemoglobin 29.5 pg (27.0-33.0); Mean Corpuscular Volume 88.6 fL (80.0-98.0); NRBC Abs Auto 0.000 X10*3/uL (0.0-0.012); NRBC Pct Auto 0.0 /100WBC (0.0-0.2); Platelet Count 275 X10*3/uL (160-400); Red Blood Count 4.30 X10*6/uL (4.20-5.50); White Blood Count 9.7 X10*3/uL (4.8-10.8)
[2025-03-05 16:36] LABS: Appearance Urine Clear; Glucose Urine UA Negative (Negative); PH 5.5 (5.0-9.0); Specific Gravity - Urine 1.010 (1.005-1.025); UMIC TRIGGER UA YES
[2025-03-05 16:51] LABS: Alanine Aminotransferase 15 U/L (0-31); Albumin Level 4.4 g/dL (3.5-5.0); Alkaline Phosphatase 56 U/L (39-117); Anion Gap 10 (12-20); Aspartate Amino Transferase 20 U/L (5-31); Blood Urea Nitrogen 16 mg/dL (9-16); Calcium 8.6 mg/dL (8.4-10.2); Carbon Dioxide 25 mmol/L (22-29); Chloride 107 mmol/L (96-108); Cholesterol 116 mg/dL (<200); Estimated Glomerular Filt Rate > 60; HDL Cholesterol 44 mg/dL (>40); Potassium 3.8 mmol/L (3.3-5.1); Sodium 138 mmol/L (135-145); Total Protein 7.5 g/dL (6.5-8.0); Triglycerides 45 mg/dL (<150)
[2025-03-05 17:08] LABS: Thyroid Stimulating Hormone 1.52 uIU/mL (0.32-4.0)
== END 2025-03-05 14:45 | disposition home or self-care (01) ==
LOC: HO.LAB 14:44
PROVIDERS: PCP Internal Medicine; Visit Provider Internal Medicine
DX: Z00.00 Encounter for general adult medical examination without abnormal findings (principal); F41.1 Generalized anxiety disorder; F32.A Depression, unspecified
CPT/HCPCS: 36415; 80048; 80061; 80076; 81001; 84443; 85027